=== PATIENT | female | born 1970 | race Caucasian/White ===

== ENCOUNTER 2016-07-22 12:38 | Emergency (ER) | payer MEDICAID ==
[2016-07-22 12:55] VITALS: RESP 18
[2016-07-22] MEDS ORDERED: Tmp-Smz 800 mg-160 mg DS Tab PO STA (13:15)
--- NOTE | 2016-07-22 13:18 | ED PDOC ---
Arrival/HPI - General Chief Complaint: ENT Problem Time Seen by Provider: 07/22/16 13:14 Historian: Patient - History of Present Illness Narrative History of Present Illness (Text): 07/22/16 13:16 46yr old female presents today with infected earring in right ear. pt states that 10 days ago she had right ear pierced. pt states that she has been unable to get the earring out. denies fever/chills. pt states she has severe pain at the site of the piercing. no medications have been taken for pain. Past Medical History - Provider Review Nursing Documentation Reviewed: Yes - Travel History Have you recently traveled outside [place] w/in the past 3 mons?: No - Infectious Disease Hx of Infectious Diseases: None - Psychiatric Hx Substance Use: No - Surgical History Hx Hysterectomy: Yes Hx Tonsillectomy: Yes Hx Tubal Ligation: Yes Family/Social History - Physician Review Nursing Documentation Reviewed: Yes Family/Social History: Unknown Family HX Smoking Status: Never Smoked Hx Alcohol Use: Yes Frequency of alcohol use: Socially Hx Substance Use: No Allergies/Home Meds Allergies/Adverse Reactions: Allergies No Known Allergies Allergy (Verified 07/22/16 12:56) Review of Systems - Review of Systems Constitutional: absent: Fatigue, Fevers ENT: Other (infected right ear piercing) Respiratory: absent: SOB, Cough Cardiovascular: absent: Chest Pain, Palpitations Gastrointestinal: absent: Abdominal Pain, Nausea, Vomiting Musculoskeletal: absent: Back Pain, Neck Pain Skin: absent: Rash, Pruritis Neurological: absent: Headache, Dizziness Psychiatric: absent: Anxiety, Depression Physical Exam Vital Signs Reviewed: Yes Vital Signs Temp Pulse Resp BP Pulse Ox 07/22/16 14:00 97.6 F 75 18 122/72 99 07/22/16 12:50 97.9 F 79 18 112/83 98 Temperature: Afebrile Blood Pressure: Normal Pulse: Regular Respiratory Rate: Normal Appearance: Positive for: Well-Appearing, Non-Toxic, Comfortable Pain Distress: None Mental Status: Positive for: Alert and Oriented X 3 - Systems Exam Head: Present: Swelling (swelling and erythema noted to right ear; + partially embedded earing noted to right upper earlobe. ) Ears: No: Normal (stud earring partially embedded in superior aspect of right ear lobe. ) Mouth: Present: Moist Mucous Membranes Neck: Present: Normal Range of Motion Respiratory/Chest: Present: Clear to Auscultation, Good Air Exchange. No: Respiratory Distress, Accessory Muscle Use Cardiovascular: Present: Regular Rate and Rhythm Medical Decision Making ED Course and Treatment: 07/22/16 13:16 46yr old female with embedded piercing in right ear. pt is non toxic well appearing; no distress. using needle patient transportation driver and roseline clamp the earring was removed; pt placed on bactrim and keflex for infection. advised to keep wound clean and dry apply bacitracin twice daily. Patient verbalizes understanding of discharge instructions and need for immediate followup. Motrin every 6 hours as needed for pain Keflex 1 capsule 4 times daily 7 days Bactrim 1 tablet twice daily 7 days Follow-up the primary care physician within the next 2 days Apply bacitracin twice daily Return immediately if symptoms worsen persist or if new concerning symptoms develop: high fevers, increasing pain, redness, swelling or purulent discharge. Follow-up with the ENT specialist. 07/22/16 14:15 pt left ER without her discharge papers and prescriptions. i called patient and left message to return to er to parts picker papers and prescriptions. 07/22/16 18:41 made a second phone call the patient; no answer; left message to return to ER or call ER so that she can get her rx for antibiotics. - Medication Orders Current Medication Orders: Discontinued Medications Cephalexin Monohydrate (Keflex) 500 mg PO STAT STA PRN Reason: Protocol Stop: 07/22/16 13:16 Last Admin: 07/22/16 13:29 Dose: 500 MG Ibuprofen (Motrin Tab) 600 mg PO STAT STA Stop: 07/22/16 13:15 Last Admin: 07/22/16 13:29 Dose: 600 MG Trimethoprim/Sulfamethoxazole (Bactrim Ds Tab) 1 tab PO STAT STA PRN Reason: Protocol Stop: 07/22/16 13:16 Last Admin: 07/22/16 13:29 Dose: 1 TAB Disposition/Present on Arrival - Present on Arrival Any Indicators Present on Arrival: No History of DVT/PE: No History of Uncontrolled Diabetes: No Urinary Catheter: No History of Decub. Ulcer: No History Surgical Site Infection Following: None - Disposition Have Diagnosis and Disposition been Completed?: Yes Diagnosis: Infected embedded earring Disposition: HOME/ ROUTINE Disposition Time: 13:15 Patient Plan: Discharge Condition: GOOD Discharge Instructions (ExitCare): Wound Infection (ED) Additional Instructions: Keflex 1 capsule 4 times daily 7 days Bactrim 1 tablet twice daily 7 days Follow-up the primary care physician within the next 2 days Apply bacitracin twice daily Return immediately if symptoms worsen persist or if new concerning symptoms develop: high fevers, increasing pain, redness, swelling or purulent discharge. Follow-up with the ENT specialist. Prescriptions: Bacitracin 1 appl TP BID #1 tube Sulfamethoxazole/Trimethoprim [Bactrim DS 800 mg-160 mg] 1 tab PO BID #14 tab Cephalexin [Keflex] 500 mg PO QID #28 capsule Referrals: Drake Barron DO [Staff Provider] - Follow up with primary Kateryna Alexander MD [Staff Provider] - Follow up with primary Forms: WORK NOTE
[2016-07-22 14:17] VITALS: BP 122/72; PULSE 75; TEMP 97.6; O2SAT 99
== END 2016-07-22 14:17 | disposition home or self-care (01) ==
LOC: MERGE 12:38 → ED 12:38
DX: L08.9 Local infection of the skin and subcutaneous tissue, unspecified (principal)